=== PATIENT | male | born 1955 | race Caucasian/White ===

== ENCOUNTER 2016-07-24 14:22 | Emergency (ER) | payer SELFPAY ==
--- NOTE | 2016-08-27 15:38 | ER ---
ADMIT: 07/24/2016 RM/LOC: ER [facility] MR#: [id number] [address] [facility] [id number] [address]IN GREENE [address] [place] [address] Emergency Room Report SEX: M AGE: 60 : 1955 DATE: 07/24/2016 A 60-year-old gentleman who was cleaning his house yesterday when he fell on an outstretched hand, he has had hand pain since. See T-sheet for history and physical. X-rays revealed metacarpal and trapezium fracture, he was splinted. Given [place] for pain control. Instructed to follow up Dr. Martini this week. Lisandro Anne MD/ iván JOB #: [id number] CC: Jae Godoy MD, Attending Physician Joanne Martini MD, Family Physician
== END 2016-07-24 15:50 | disposition home or self-care (01) ==
LOC: ER 14:22
PROC: 2W3FX1Z Immobilization of Left Hand using Splint (ICD-10-PCS; principal; 2016-07-24)
DX: S62.311A Displaced fracture of base of second metacarpal bone, left hand, initial encounter for closed fracture (principal); S62.172A Displaced fracture of trapezium [larger multangular], left wrist, initial encounter for closed fracture; S50.312A Abrasion of left elbow, initial encounter; W18.30XA Fall on same level, unspecified, initial encounter; Y93.E9 Activity, other interior property and clothing maintenance; Y92.009 Unspecified place in unspecified non-institutional (private) residence as the place of occurrence of the external cause